=== PATIENT | male | born 1950 | race Caucasian/White ===

== ENCOUNTER 2021-01-05 15:54 | Emergency (ER) | payer MEDICARE, SELFPAY ==
--- NOTE | ~2021-01-05 | XR_ITS ---
EXAMINATION: XR CHEST CLINICAL INFORMATION: Cough. Covid exposure. COMPARISON: None TECHNIQUE: Frontal portable view of the chest was obtained. 5:05 PM FINDINGS: No significant abnormality is noted involving the heart, lungs, mediastinum, bony thorax or soft tissues. XR/XR chest 1V IMPRESSION: Unremarkable examination.
--- NOTE | 2021-01-05 16:32 | ED_ITS ---
HPI - SOB/Dyspnea General Chief Complaint: Upper Respiratory Symptoms Stated Complaint: covid symptoms Time Seen by Provider: 01/05/21 16:27 Source: patient Mode of arrival: ambulatory History of Present Illness HPI Narrative: 70-year-old male with no significant past medical history presenting to the ED complaining of productive cough x1 day. Admits was exposed to COVID-19, grandson tested positive today. Denies fever, chills, chest pain, shortness of breath, LE edema, recent travel MD elicited complaint: cough Related Data Previous Rx's Medication Instructions Recorded benzonatate 200 mg capsule 200 mg PO TID PRN #20 cap 01/05/21 Allergies Allergy/AdvReac Type Severity Reaction Status Date / Time Penicillins Allergy Mild ITCHY RASH Unverified 11/13/19 17:47 ampicillin Allergy Unknown Verified 08/27/15 00:00 aspirin Allergy Unknown Verified 08/27/15 00:00 penicillin V Allergy Unknown Verified 09/24/14 00:00 seafood Allergy Unknown Uncoded 08/27/15 00:00 shellfish Allergy Unknown rash Uncoded 09/24/14 00:00 Review of Systems Review of Systems: Constitutional: No Fever, No Chills ENT/Mouth: No Ear Pain, No Nasal Congestion, No Hoarseness, No sore throat, No Rhinorrhea, No Swallowing Difficulty Cardiovascular: No Chest Pain, No SOB Respiratory: + Cough, + Sputum, No Wheezing Gastrointestinal: No Nausea, No Vomiting, No Diarrhea, No Constipation, No Abdominal pain Genitourinar:, No Hematuria, No Urgency, No Flank Pain Musculoskeletal: No joint pain, No Myalgias, No Joint Swelling Skin: No Skin Lesions, No rash Neuro: No Weakness, No Numbness Yes all other systems are reviewed and are negative [facility] Past Medical History Attestation statement: The following information was validated with the patient. Medical History (Updated 01/05/21 @ 17:25 by ERMIAS Roe) Arthritis Social History Social History Advance Directives: No Advance Directives Information Provided: No Physical Exam Vital Signs: Vital Signs: Last Vital Signs Temp 99.0 F 01/05/21 16:44 Pulse 81 01/05/21 16:44 Resp 20 01/05/21 16:44 BP 150/81 H 01/05/21 16:44 Pulse Ox 97 01/05/21 16:44 Body Mass Index 32.8 Const: General: cooperative, healthy appearing, no acute distress and well developed Orientation/consciousness: patient oriented x3 Limitations: no limitations HENMT: Head: Yes normal to inspection Ears: hearing grossly normal bilaterally General nose exam: Normal external nose present Face and sinus: Yes normal facial exam Eyes: General: appearance normal, both eyes and all related structures EOM: EOMs intact bilaterally Neck: Neck: Yes normal visual inspection and Yes no meningeal signs Resp: Effort & Inspection: normal respiratory effort and no respiratory distress Auscultation: clear to auscultation bilaterally, no rales, no rhonchi and no wheezes Cardio: Rate: regular rate Heart sounds: S1 normal heart sound present and S2 normal heart sound present Skin: Rashes: no rashes Wounds: no wounds Neuro: General: patient oriented x3 and no meningeal signs Gait exam (Neuro): Normal gait present Extrem: General: Yes normal to inspection and Yes no pedal edema Course Course Course Narrative: -COVID-19 negative XR chest 1V IMPRESSION: Unremarkable examination. MDM - SOB/Dyspnea MDM Narrative Medical decision making narrative: 70-year-old male with no significant past medical history presenting to the ED complaining of productive cough x1 day. On exam vital signs stable, NAD/nontoxic, lungs CTA, no pedal edema. Concern for viral syndrome/COVID-19. Rule out pneumonia. Plan: CXR, COVID-19 testing Medical Records Attestation: I reviewed the patient's medical records. Lab Data Attestation: I reviewed the patient's lab results. Labs: Lab Results 01/05/21 Range/Units 16:58 COVID-19 ([facility]OUANN) Negative (Negative) COVID-19 Clin Com See Note Discharge Plan Discharge Clinical Impression: Upper respiratory infection Qualifiers: URI type: unspecified URI Qualified Code(s): J06.9 - Acute upper respiratory infection, unspecified Patient Disposition: Home, Self-Care Instructions: Upper Respiratory Infection (ED) Additional Instructions: You tested negative for COVID-19 feeling x-ray was unremarkable Stay hydrated at home Please follow-up with your doctor kasey mcginnis are for cough, take as needed If her symptoms persist or worsen, he develops fever, constant worsening cough, shortness of breath or chest pain please return to the ED Chente negativo para COVID-19 sintiendo que los darcy X no yulissa notables Mantente hidratado en casa Italo un seguimiento con dale m?dico. Las perlas de tessalon son para la tos, t?melas seg?n sea necesario. Si tommy s?ntomas persisten o empeoran, ?l desarrolla fiebre, tos que empeora constantemente, falta de aire o dolor en el pecho, por favor regrese al servicio de urgencias. Prescriptions: New benzonatate 200 mg capsule 200 mg PO TID PRN (Reason: cough) Qty: 20 RF: 0 Referrals: Physician,None [Primary Care Provider] - 2 days Print Language: Mongolian
[2021-01-05 16:44] VITALS: BP 150/81; PULSE 81; RESP 20; TEMP 37.2; O2SAT 97; BMI 32.8
[2021-01-05 17:19] LABS: COVID-19 Test Negative (Negative); IDNOW Serial# 9DD0AD1C
== END 2021-01-05 18:07 | disposition home or self-care (01) ==
PROVIDERS: Physician Assistant; Emergency Provider Internal Medicine
DX: J06.9 Acute upper respiratory infection, unspecified (principal); Z20.822 Contact with and (suspected) exposure to COVID-19
CPT/HCPCS: 36415; 71045; 87635; 99283

== ENCOUNTER 2021-01-10 15:06 | Outpatient (REF) | payer MEDICARE, SELFPAY | END 2021-01-10 15:07 | disposition home or self-care (01) | LOC: HO.LAB 15:06 | PROVIDERS: Visit Provider Internal Medicine | DX: Z20.822 Contact with and (suspected) exposure to COVID-19 (principal) | CPT/HCPCS: C9803; U0003; U0005 ==